=== PATIENT | male | born 1990 | race Native Hawaiian/Other Pacific Islander ===

== ENCOUNTER 2020-04-06 23:01 | Emergency (ER) | payer OTHER ==
[~2020-04-06] VITALS: Ht 182.9 cm; Wt 81.6 kg
[2020-04-07 01:49] VITALS: BP 115/68; TEMP 98.1
== END 2020-04-07 01:50 ==
LOC: ED 23:01
PROC: 2W3DX1Z Immobilization of Left Lower Arm using Splint (ICD-10-PCS; principal; 2020-04-06)
PROC: 2W3CX1Z Immobilization of Right Lower Arm using Splint (ICD-10-PCS; 2020-04-06)
PROC: 0HQEXZZ Repair Left Lower Arm Skin, External Approach (ICD-10-PCS; 2020-04-06)
DX: S51.812A Laceration without foreign body of left forearm, initial encounter (principal); X78.0XXA Intentional self-harm by sharp glass, initial encounter; W22.8XXA Striking against or struck by other objects, initial encounter; Y92.148 Other place in prison as the place of occurrence of the external cause
CPT/HCPCS: 99283; J2001; J7040

== ENCOUNTER 2020-05-21 18:08 | Emergency (ER) | payer OTHER ==
[~2020-05-21] VITALS: Ht 182.9 cm; Wt 86.2 kg
[2020-05-21 18:15] VITALS: TEMP 98.7
[2020-05-21 20:44] VITALS: BP 129/65
== END 2020-05-21 20:44 ==
LOC: ED 18:08
PROC: 0HQEXZZ Repair Left Lower Arm Skin, External Approach (ICD-10-PCS; principal; 2020-05-21)
PROC: 0HCEXZZ Extirpation of Matter from Left Lower Arm Skin, External Approach (ICD-10-PCS; 2020-05-21)
DX: S51.822A Laceration with foreign body of left forearm, initial encounter (principal); X78.8XXA Intentional self-harm by other sharp object, initial encounter; Z91.5 Personal history of self-harm; Y92.148 Other place in prison as the place of occurrence of the external cause
CPT/HCPCS: 90471; 90715; 99283; J7040

== ENCOUNTER 2020-05-22 08:54 | Emergency (ER) | payer OTHER ==
[~2020-05-22] VITALS: Ht 182.9 cm; Wt 86.2 kg
[2020-05-22 10:51] VITALS: BP 117/77; TEMP 98.2
== END 2020-05-22 10:52 ==
LOC: ED 08:54
PROC: 0KCB0ZZ Extirpation of Matter from Left Lower Arm and Wrist Muscle, Open Approach (ICD-10-PCS; principal; 2020-05-22)
DX: S51.822A Laceration with foreign body of left forearm, initial encounter (principal); X78.8XXA Intentional self-harm by other sharp object, initial encounter; Y92.148 Other place in prison as the place of occurrence of the external cause
CPT/HCPCS: 99283; J7040